=== PATIENT | female | born 1990 | race American Indian/Alaskan Native ===

== ENCOUNTER 2019-03-12 17:44 | Emergency (ER) | payer SELFPAY ==
--- NOTE | 2019-03-12 20:15 | Emergency Department Report ---
Chief Complaint: Chest Pain Stated Complaint: CHEST PAIN/LFT SIDE DISCOMFORT - HPI History of Present Illness: 28 yo BF states that she has intermittent CP and L arm tingling for 3 days. - Exam Vital Signs: Vital Signs 03/12/19 20:05 Temperature 98.1 F Pulse Rate 89 Respiratory 18 Rate Blood Pressure 126/79 O2 Sat by Pulse 96 Oximetry MSE screening note: Focused history and physical exam performed. Due to findings the following was ordered: ED Disposition for MSE Condition: Stable
[2019-03-12 21:01] VITALS: BP 112/70
[2019-03-12 21:18] LABS: Basophils # (Auto) 0.1 K/mm3 (0.0-0.1); Basophils % (Auto) 0.5 % (0.0-1.8); Eosinophils # (Auto) 0.4 K/mm3 (0.0-0.4); Eosinophils % (Auto) 3.6 % (0.0-4.3); Hematocrit 43.5 % (30.3-42.9); Hemoglobin 14.7 gm/dl (10.1-14.3); Lymphocytes # (Auto) 2.6 K/mm3 (1.2-5.4); Lymphocytes % (Auto) 24.5 % (13.4-35.0); Mean Corpuscular HGB Conc 34 % (30-34); Mean Corpuscular Volume 94 fl (79-97); Monocytes # (Auto) 0.7 K/mm3 (0.0-0.8); Monocytes % (Auto) 6.6 % (0.0-7.3); Platelet Count 187 K/mm3 (140-440); Red Blood Count 4.63 M/mm3 (3.65-5.03); Red Cell Distribution Width 12.8 % (13.2-15.2)
[2019-03-12 21:20] LABS: Alanine Aminotransferase 31 units/L (7-56); Albumin 4.7 g/dL (3.9-5); BUN/Creatinine Ratio 21; Blood Urea Nitrogen 15 mg/dL (7-17); Calcium 9.8 mg/dL (8.4-10.2); Hemolysis Index 4
--- NOTE | 2019-03-12 21:26 | XRay Report ---
CHEST 2 VIEWS INDICATION / CLINICAL INFORMATION: CP. COMPARISON: None available. FINDINGS: SUPPORT DEVICES: None. HEART / MEDIASTINUM: No significant abnormality. LUNGS / PLEURA: No significant pulmonary or pleural abnormality. No pneumothorax. ADDITIONAL FINDINGS: Bilateral nipple piercings IMPRESSION: 1. No acute findings. Signer Name: Alexx Romeo MD Signed: 03/12/2019 9:21 PM Workstation Name: [id number]
--- NOTE | 2019-03-12 23:07 | Emergency Department Report ---
ED Chest Pain HPI - General Chief Complaint: Chest Pain Stated Complaint: CHEST PAIN/LFT SIDE DISCOMFORT Time Seen by Provider: 03/12/19 22:59 Source: patient Mode of arrival: Ambulatory Limitations: No Limitations - History of Present Illness Initial Comments: [id number]-old -[place] female presents to the emergency room for a 3 day history of intermittent chest pain on the left side that radiates to her left arm shortness of breath times last night. Patient reports that the pain is sharp at night when she is trying to rest. She reports tingling to her left arm. Patient denies any pain at this moment no further shortness of breath. Patient last menstrual period she is currently on IUD at the [facility]. She has no past medical history currently has no medications on a daily basis is and his allergies to sulfa drugs. Patient is currently in school she has 3 children. MD Complaint: chest pain Onset/Timin -: days(s) Onset: during rest Pain Location: left chest Pain Radiation: LUE Severity scale (0 -10): 0 Quality: sharp Consistency: intermittent Improves With: nothing Worsens With: nothing re: dyspnea. denies: nausea, vomting, diaphoresis, sense of impending doom Treatments Prior to Arrival: none - Related Data On Oral Contraceptives: No Allergies Allergy/AdvReac Type Severity Reaction Status Date / Time sulfamethoxazole Allergy Unknown Verified 03/12/19 17:49 [From Bactrim] trimethoprim [From Bactrim] Allergy Unknown Verified 03/12/19 17:49 Heart Score - HEART Score History: Slightly suspicious EKG: Normal Age: < 45 Risk factors: No known risk factors Troponin: 1-3x normal limit HEART Score: 1 - Critical Actions Critical Actions: 0-3 pts:0.9-1.7%risk of adverse cardiac event.Candidate for discharge ED Review of Systems ROS: Stated complaint: CHEST PAIN/LFT SIDE DISCOMFORT Other details as noted in HPI Comment: All other systems reviewed and negative Constitutional: denies: chills, fever Eyes: denies: eye pain, eye discharge, vision change ENT: denies: ear pain, throat pain Respiratory: shortness of breath (not currently) Cardiovascular: chest pain (not currently) Gastrointestinal: denies: abdominal pain, nausea, diarrhea ED Past Medical Hx - Past Medical History Previous Medical History?: No - Surgical History Past Surgical History?: No - Social History Smoking Status: Current Every Day Smoker Substance Use Type: Alcohol ED Physical Exam - General Limitations: No Limitations General appearance: alert, in no apparent distress - Head Head exam: Present: atraumatic, normocephalic - Eye Eye exam: Present: normal appearance - ENT ENT exam: Present: mucous membranes moist - Neck Neck exam: Present: normal inspection - Respiratory Respiratory exam: Present: normal lung sounds bilaterally. Absent: respiratory distress, chest wall tenderness - Cardiovascular Cardiovascular Exam: Present: regular rate, normal rhythm. Absent: systolic murmur, diastolic murmur, rubs, gallop - GI/Abdominal GI/Abdominal exam: Present: soft, normal bowel sounds - Neurological Exam Neurological exam: Present: alert, oriented X3 - Psychiatric Psychiatric exam: Present: normal affect, normal mood - Skin Skin exam: Present: warm, dry, intact, normal color. Absent: rash ED Course Vital Signs 03/12/19 03/12/19 20:05 20:59 Temperature 98.1 F Pulse Rate 89 70 Respiratory 18 16 Rate Blood Pressure 126/79 Blood Pressure 112/70 [Left] O2 Sat by Pulse 96 97 Oximetry IMTIAZ score - Imtiaz Score Age > 65: (0) No Aspirin use within the Past 7 Days: (0) No 3 or more CAD Risk Factors: (0) No 2 or more Angina events in past 24 hrs: (0) No Known CAD with more than 50% Stenosis: (0) No Elevated Cardiac Markers: (0) No ST Deviation Greater than 0.5mm: (0) No IMTIAZ Score: 0 ED Medical Decision Making - Lab Data Result diagrams: 03/12/19 20:21 03/12/19 20:21 - Radiology Data Radiology results: report reviewed Patient: MANASA PIERRE MR#: [id number] : 1990 Acct:[id number] Age/Sex: 28 / F ADM Date: 03/12/19 Loc: ED Attending Dr: Ordering Physician: SANDHYA FLORES PA-C Date of Service: 03/12/19 Procedure(s): XR chest routine 2V Accession Number(s): [id number] cc: SANDHYA FLORES PA-C Fluoro Time In Minutes: CHEST 2 VIEWS INDICATION / CLINICAL INFORMATION: CP. COMPARISON: None available. FINDINGS: SUPPORT DEVICES: None. HEART / MEDIASTINUM: No significant abnormality. LUNGS / PLEURA: No significant pulmonary or pleural abnormality. No pneumothorax. ADDITIONAL FINDINGS: Bilateral nipple piercings IMPRESSION: 1. No acute findings. Signer Name: Alexx Romeo MD Signed: 03/12/2019 9:21 PM Workstation Name: [id number] Transcribed By: TL Dictated By: Alexx Romeo MD Electronically Authenticated By: Alexx Romeo MD Signed Date/Time: 03/12/192120 DD/ 20 TD/TT: - Medical Decision Making [id number] -[place] female presents to the emergency room for a 3 day history of intermittent chest pain on the left side that radiates to her left arm shortness of breath times last night. Patient reports that the pain is sharp at night when she is trying to rest. She reports tingling to her left arm. Patient denies any pain at this moment no further shortness of breath. Patient last menstrual period she is currently on IUD at the [facility]. She has no past medical history currently has no medications on a daily basis is and his allergies to sulfa drugs. Patient is currently in school she has 3 children. Chest x-ray is negative. EKG normal sinus rhythm. Negative troponin. Patient currently has no chest pain or shortness of breathing. Discussed the patient she should follow up with her primary care provider in the next 2-3 days if symptoms persist or gets worse. Patient verbalizes understanding. Critical care attestation.: If time is entered above; I have spent that time in minutes in the direct care of this critically ill patient, excluding procedure time. ED Disposition Clinical Impression: Atypical chest pain Disposition: DC-01 TO HOME OR SELFCARE Is pt being admited?: No Does the pt Need Aspirin: No Condition: Stable Instructions: Chest Pain (ED) Additional Instructions: Please follow-up with a primary care provider if his symptoms persist or gets worse. Referrals: Your,Provider [Other] - 3-5 Days Forms: Work/School Release Form(ED)
== END 2019-03-13 00:32 | disposition home or self-care (01) ==
LOC: ED 17:44
DX: R07.89 Other chest pain (principal); F17.200 Nicotine dependence, unspecified, uncomplicated; Z79.899 Other long term (current) drug therapy; Z88.8 Allergy status to other drugs, medicaments and biological substances
CPT/HCPCS: 36415; 71046; 80053; 84484; 85025; 93005; 93010

== ENCOUNTER 2020-02-21 09:29 | Emergency (ER) | payer BC ==
[2020-02-21 09:38] VITALS: BP 118/77
--- NOTE | 2020-02-21 10:38 | Emergency Department Report ---
ED General Adult HPI - General Chief complaint: Upper Respiratory Infection Stated complaint: FATIGUE,DIZZY,HEADACHE,CP Time Seen by Provider: 02/21/20 10:11 Source: patient Mode of arrival: Ambulatory Limitations: No Limitations - History of Present Illness Initial comments: Patient is a 29-year-old female presents emergency room with complaints of fat igue that began a week ago. She has associated generalized weakness, dizziness, diarrhea, cough, chest congestion, chest discomfort after frequent coughing. She denies any nausea, vomiting, sore throat, ear pain, shortness of breath, abdominal pain. She denies any known sick contacts. She denies any recent travel. She denies any past medical history. She has an allergy to Bactrim. She states that she uses an IUD as control. Patient states that she was concerned that she might be anemic but has never had a history of anemia in the past. - Related Data Allergies Allergy/AdvReac Type Severity Reaction Status Date / Time sulfamethoxazole Allergy Unknown Verified 03/12/19 17:49 [From Bactrim] trimethoprim [From Bactrim] Allergy Unknown Verified 03/12/19 17:49 ED Review of Systems ROS: Stated complaint: FATIGUE,DIZZY,HEADACHE,CP Other details as noted in HPI Comment: All other systems reviewed and negative ED Past Medical Hx - Past Medical History Previous Medical History?: No - Surgical History Past Surgical History?: No - Social History Smoking Status: Current Every Day Smoker Substance Use Type: Alcohol ED Physical Exam - General Limitations: No Limitations General appearance: alert, in no apparent distress - Head Head exam: Present: atraumatic, normocephalic - Eye Eye exam: Present: normal appearance - ENT ENT exam: Present: normal orophraynx, mucous membranes moist, TM's normal bilaterally, normal external ear exam - Respiratory Respiratory exam: Present: normal lung sounds bilaterally. Absent: respiratory distress, wheezes, rales, rhonchi, stridor, chest wall tenderness, accessory muscle use, decreased breath sounds, prolonged expiratory - Cardiovascular Cardiovascular Exam: Present: regular rate, normal rhythm, normal heart sounds. Absent: systolic murmur, diastolic murmur, rubs, gallop - Neurological Exam Neurological exam: Present: alert, oriented X3 - Psychiatric Psychiatric exam: Present: normal affect, normal mood - Skin Skin exam: Present: warm, dry, intact ED Course Vital Signs 02/21/20 09:36 Temperature 98.5 F Pulse Rate 72 Respiratory 18 Rate Blood Pressure 118/77 O2 Sat by Pulse 97 Oximetry ED Medical Decision Making - Lab Data Result diagrams: 02/21/20 10:37 02/21/20 10:37 Lab Results 02/21/20 02/21/20 02/21/20 Range/Units 10:37 10:37 10:37 WBC 9.3 (4.5-11.0) K/mm3 RBC 4.46 (3.65-5.03) M/mm3 Hgb 14.5 H (10.1-14.3) gm/dl Hct 42.7 (30.3-42.9) % MCV 96 (79-97) fl MCH 32 (28-32) pg MCHC 34 (30-34) % RDW 13.3 (13.2-15.2) % Plt Count 175 (140-440) K/mm3 Lymph % (Auto) 22.6 (13.4-35.0) % [place] % (Auto) 5.5 (0.0-7.3) % Eos % (Auto) 5.1 H (0.0-4.3) % Baso % (Auto) 0.7 (0.0-1.8) % Lymph # (Auto) 2.1 (1.2-5.4) K/mm3 [place] # (Auto) 0.5 (0.0-0.8) K/mm3 Eos # (Auto) 0.5 H (0.0-0.4) K/mm3 Baso # (Auto) 0.1 (0.0-0.1) K/mm3 Seg Neutrophils % 66.1 (40.0-70.0) % Seg Neutrophils # 6.1 (1.8-7.7) K/mm3 Sodium 138 (137-145) mmol/L Potassium 4.2 (3.6-5.0) mmol/L Chloride 102.1 (98-107) mmol/L Carbon Dioxide 25 (22-30) mmol/L Anion Gap 15 mmol/L BUN 15 (7-17) mg/dL Creatinine 0.6 (0.6-1.2) mg/dL Estimated GFR > 60 ml/min BUN/Creatinine Ratio 25 % Glucose 93 (65-100) mg/dL Calcium 9.2 (8.4-10.2) mg/dL Total Bilirubin 0.20 (0.1-1.2) mg/dL AST 17 (5-40) units/L ALT 26 (7-56) units/L Alkaline Phosphatase 85 (35-129) units/L Total Protein 6.6 (6.3-8.2) g/dL Albumin 4.1 (3.9-5) g/dL Albumin/Globulin Ratio 1.6 % HCG, Qual Negative (Negative) - Radiology Data Radiology results: report reviewed CHEST 2 VIEWS INDICATION / CLINICAL INFORMATION: cough, chest congestion. COMPARISON: 03/12/19 FINDINGS: SUPPORT DEVICES: None. HEART / MEDIASTINUM: No significant abnormality. LUNGS / PLEURA: No significant pulmonary or pleural abnormality. No pneumothorax. ADDITIONAL FINDINGS: No significant additional findings. IMPRESSION: 1. No acute findings. No change. Signer Name: Antonio Reynolds MD Signed: 02/21/2020 11:47 AM Workstation Name: [id number] Transcribed By: DT Dictated By: Diaz Reynolds MD Electronically Authenticated By: Diaz Reynolds MD Signed Date/Time: 02/21/20 1147 DD/ 1147 TD/TT: - Medical Decision Making Patient is a 29-year-old female presents emergency room with complaints of fatigue that began a week ago. She has associated generalized weakness, dizziness, diarrhea, cough, chest congestion, chest discomfort after frequent coughing. She denies any nausea, vomiting, sore throat, ear pain, shortness of breath, abdominal pain. She denies any known sick contacts. She denies any recent travel. She denies any past medical history. She has an allergy to Bactrim. She states that she uses an IUD as control. Patient states that she was concerned that she might be anemic but has never had a history of anemia in the past. Vitals are normal. Labs are normal. hCG is negative. Chest x- ray:1. No acute findings. No change. Patient is presenting with the symptoms are new COVID-19 pandemic, discussed the possibility of COVID-19 with patient, discuss strict return precautions, discussed outpatient testing, discussed self quarantine. Patient has no clinical signs of dehydration, no hypotension, no clinical signs of bacterial pneumonia or bronchitis. advised pt Please increase your fluid intake over the next several days. May take Tylenol as needed for fever or body aches. May take imqf-brq-[id number] cold symptom relief medication such as Mucinex or TheraFlu. Follow-up with a primary care doctor for reexamination. Return to emergency room immediately for any new or worsening symptoms including but not limited to difficulty breathing, shortness of breath, severe chest pain, unable to tolerate by mouth intake, etc. Please self quarantine for 2 weeks from the onset of your symptoms. Please do not go out in public. If you are around others at home please wear a mask. If you need to cough or sneeze please do so in a napkin and immediately throw it away and immediately wash your hands. Wash your hands frequently. Wipe everything down. Recommend for you to get COVID-19 testing, may have this done at primary care doctor, health department, [facility] or drive thru testing center - Differential Diagnosis URI, PNA, COVID19, viral syndrome, electrolyte disturbance, anemia, SUKUMAR Critical care attestation.: If time is entered above; I have spent that time in minutes in the direct care o f this critically ill patient, excluding procedure time. ED Disposition Clinical Impression: Viral URI with cough, Dizziness, Generalized weakness Fatigue Qualifiers: Fatigue type: unspecified Qualified Code(s): R53.83 - Other fatigue Disposition: DC-01 TO HOME OR SELFCARE Is pt being admited?: No Does the pt Need Aspirin: No Condition: Stable Instructions: COVID-19, Viral Syndrome (ED) Additional Instructions: Please increase your fluid intake over the next several days. May take Tylenol as needed for fever or body aches. May take fhpy-hjf-khkbstg cold symptom relief medication such as Mucinex or TheraFlu. Follow-up with a primary care doctor for reexamination. Return to emergency room immediately for any new or worsening symptoms including but not limited to difficulty breathing, shortness of breath, severe chest pain, unable to tolerate by mouth intake, etc. Please self quarantine for 2 weeks from the onset of your symptoms. Please do not go out in public. If you are around others at home please wear a mask. If you need to cough or sneeze please do so in a napkin and immediately throw it away and immediately wash your hands. Wash your hands frequently. Wipe everything down. Recommend for you to get COVID-19 testing, may have this done at primary care doctor, health department, [facility] or drive thru testing center Referrals: ALISSA YBARRA MD [Primary Care Provider] - 2-3 Days JUDITH RADFORD MD [Staff Physician] - 2-3 Days Time of Disposition: 12:08 Print Language: ROMANIAN
[2020-02-21 11:00] LABS: Basophils # (Auto) 0.1 K/mm3 (0.0-0.1); Basophils % (Auto) 0.7 % (0.0-1.8); Eosinophils # (Auto) 0.5 K/mm3 (0.0-0.4); Eosinophils % (Auto) 5.1 % (0.0-4.3); Hematocrit 42.7 % (30.3-42.9); Hemoglobin 14.5 gm/dl (10.1-14.3); Lymphocytes # (Auto) 2.1 K/mm3 (1.2-5.4); Lymphocytes % (Auto) 22.6 % (13.4-35.0); Mean Corpuscular HGB Conc 34 % (30-34); Mean Corpuscular Volume 96 fl (79-97); Monocytes # (Auto) 0.5 K/mm3 (0.0-0.8); Monocytes % (Auto) 5.5 % (0.0-7.3); Platelet Count 175 K/mm3 (140-440); Red Blood Count 4.46 M/mm3 (3.65-5.03); Red Cell Distribution Width 13.3 % (13.2-15.2)
[2020-02-21 11:14] LABS: Alanine Aminotransferase 26 units/L (7-56); Albumin 4.1 g/dL (3.9-5); Blood Urea Nitrogen 15 mg/dL (7-17); Calcium 9.2 mg/dL (8.4-10.2); Hemolysis Index 11
[2020-02-21 11:15] LABS: BUN/Creatinine Ratio 25
--- NOTE | 2020-02-21 11:52 | XRay Report ---
CHEST 2 VIEWS INDICATION / CLINICAL INFORMATION: cough, chest congestion. COMPARISON: 03/12/19 FINDINGS: SUPPORT DEVICES: None. HEART / MEDIASTINUM: No significant abnormality. LUNGS / PLEURA: No significant pulmonary or pleural abnormality. No pneumothorax. ADDITIONAL FINDINGS: No significant additional findings. IMPRESSION: 1. No acute findings. No change. Signer Name: Antonio Reynolds MD Signed: 02/21/2020 11:47 AM Workstation Name: [id number]
== END 2020-02-21 12:15 | disposition home or self-care (01) ==
LOC: ED 09:29
DX: J06.9 Acute upper respiratory infection, unspecified (principal); B34.9 Viral infection, unspecified; R05 Cough; R42 Dizziness and giddiness; R53.1 Weakness; R53.83 Other fatigue; F17.200 Nicotine dependence, unspecified, uncomplicated; Z88.8 Allergy status to other drugs, medicaments and biological substances
CPT/HCPCS: 36415; 71046; 80053; 84703; 85025

== ENCOUNTER 2020-03-30 17:18 | Emergency (ER) | payer BC ==
[2020-03-30 17:26] VITALS: BP 129/80
--- NOTE | 2020-03-30 17:55 | Emergency Department Report ---
Blank Doc - Documentation Documentation: 30-year-old female that presents with vaginal discharge and concerned about STD. This initial assessment/diagnostic orders/clinical plan/treatment(s) is/are subject to change based on patient's health status, clinical progression and re- assessment by fellow clinical providers in the ED. Further treatment and workup at subsequent clinical providers discretion. Patient/guardians urged not to elope from the ED as their condition may be serious if not clinically assessed and managed. Initial orders include: 1- Patient sent to [facility] for further evaluation and treatment 2- UA
[2020-03-30 18:51] LABS: Bilirubin,Urine NEG (Negative); Blood,Urine NEG (Negative); Color,Urine Yellow (Yellow); Mucus,Urine FEW /HPF; Protein,Urine <15 mg/dL mg/dL (Negative); Urobilinogen,Urine < 2.0 mg/dL (<2.0)
[2020-03-30 19:01] LABS: HCG Qualitative,Urine Negative (Negative)
[2020-03-30] MEDS ORDERED: LIDOCAINE-MPF (1%) 10 MG/1 ML VIAL 5 ML INFILTRATI ONE (20:38)
[2020-03-30] MEDS ORDERED: ONDANSETRON 4 MG ODT TAB PO ONE (20:38)
[2020-03-30] MEDS ORDERED: AZITHROMYCIN 250 MG TAB PO ONE (20:38)
--- NOTE | 2020-03-30 21:32 | Emergency Department Report ---
ED Female HPI - General Chief complaint: Urogenital-Female Stated complaint: LOWER BACK/ABD PAIN Time Seen by Provider: 03/30/20 17:54 Source: patient Mode of arrival: Ambulatory Limitations: No Limitations - History of Present Illness Initial comments: Patient is a 30-year-old -Al[place]ian female with no past medical history presents to the ED with complaint of vaginal discharge, urinary urgency and frequency for the last 2 days. Patient states that his sexual partner with whom he had a sexual intercourse 5 days ago tested positive for gonorrhea and chlamydia and was treated today in this ED. Patient states that the individual is only person she has had unprotected sexual intercourse with. Patient denies abdominal pain, dizziness, syncope, fever, chills, dysuria, dyspareunia, low back pain, vaginal bleeding, sore throat, nausea and vomiting or diarrhea. MD Complaint: vaginal discharge, possible STD, other -: Sudden, days(s) (2) Location: other (vaginal) Radiation: non-radiating Severity: mild Severity scale (0 -10): 1 Quality: dull Consistency: constant Improves with: none Worsens with: none Are you Now?: No Last Menstrual Period: 03/08/20 EDC: 12/13/20 Associated Symptoms: denies other symptoms, vaginal discharge. denies: vaginal bleeding, abdominal pain, nausea/vomiting, fever/chills, headaches, loss of appetite, dysuria, hematuria, rash, seizure, shortness of breath, syncope, weakness - Related Data Sexually active: Yes Previous Rx's Medication Instructions Recorded Last Taken Type Doxycycline Hyclate 100 mg PO Q12H #20 tablet. 03/30/20 Unknown Rx Fluconazole (Nf) [Diflucan TAB] 150 mg PO ONCE #1 tablet 03/30/20 Unknown Rx metroNIDAZOLE [Flagyl] 500 mg PO Q12HR #14 tab 03/30/20 Unknown Rx Allergies Allergy/AdvReac Type Severity Reaction Status Date / Time sulfamethoxazole Allergy Unknown Verified 03/12/19 17:49 [From Bactrim] trimethoprim [From Bactrim] Allergy Unknown Verified 03/12/19 17:49 ED Review of Systems ROS: Stated complaint: LOWER BACK/ABD PAIN Other details as noted in HPI Constitutional: denies: chills, fever Eyes: denies: eye pain, eye discharge, vision change ENT: denies: ear pain, throat pain Respiratory: denies: cough, shortness of breath, wheezing Cardiovascular: denies: chest pain, palpitations Endocrine: no symptoms reported Gastrointestinal: denies: abdominal pain, nausea, diarrhea Genitourinary: urgency, frequency, discharge. denies: dysuria Musculoskeletal: denies: back pain, joint swelling, arthralgia Skin: denies: rash, lesions Neurological: denies: headache, weakness, paresthesias Psychiatric: denies: anxiety, depression Hematological/Lymphatic: denies: easy bleeding, easy bruising ED Past Medical Hx - Past Medical History Previous Medical History?: No - Surgical History Past Surgical History?: No - Social History Smoking Status: Never Smoker Substance Use Type: None - Medications Home Medications: Home Medications Medication Instructions Recorded Confirmed Last Taken Type Doxycycline Hyclate 100 mg PO Q12H #20 tablet. 03/30/20 Unknown Rx Fluconazole (Nf) [Diflucan TAB] 150 mg PO ONCE #1 tablet 03/30/20 Unknown Rx metroNIDAZOLE [Flagyl] 500 mg PO Q12HR #14 tab 03/30/20 Unknown Rx ED Physical Exam - General Limitations: No Limitations General appearance: alert, in no apparent distress - Head Head exam: Present: atraumatic, normocephalic, normal inspection - Eye Eye exam: Present: normal appearance, PERRL, EOMI Pupils: Present: normal accommodation - ENT ENT exam: Present: normal exam, normal orophraynx, mucous membranes moist, TM's normal bilaterally, normal external ear exam - Neck Neck exam: Present: normal inspection, full ROM - Respiratory Respiratory exam: Present: normal lung sounds bilaterally. Absent: respiratory distress, wheezes, rhonchi, stridor, chest wall tenderness, accessory muscle use, prolonged expiratory - Cardiovascular Cardiovascular Exam: Present: regular rate, normal rhythm, normal heart sounds. Absent: bradycardia, tachycardia, irregular rhythm, systolic murmur, diastolic murmur, rubs, gallop - GI/Abdominal GI/Abdominal exam: Present: soft, normal bowel sounds. Absent: tenderness, guarding, hyperactive bowel sounds, hypoactive bowel sounds, organomegaly - Bi-manual exam: Present: other (Pelvic exam deferred, patient preferred self swab) - Extremities Exam Extremities exam: Present: normal inspection, full ROM, normal capillary refill - Back Exam Back exam: Present: normal inspection, full ROM. Absent: tenderness, CVA tenderness (R), CVA tenderness (L), muscle spasm, paraspinal tenderness, vertebral tenderness - Neurological Exam Neurological exam: Present: alert, oriented X3, CN II-XII intact, normal gait, reflexes normal - Psychiatric Psychiatric exam: Present: normal affect, normal mood - Skin Skin exam: Present: warm, dry, intact, normal color. Absent: rash ED Course Vital Signs 03/30/20 17:26 Temperature 98 F Pulse Rate 71 Respiratory 16 Rate Blood Pressure 129/80 [Right] O2 Sat by Pulse 98 Oximetry ED Medical Decision Making - Medical Decision Making This is a 30-year-old -Algerian female with no past medical history presents to the ED with complaint of vaginal discharge, urinary urgency and frequency for the last 2 days. Patient states that his sexual partner with whom he had a sexual intercourse 5 days ago tested positive for gonorrhea and chlamydia and was treated today in this ED. Patient states that the individual is only person she has had unprotected sexual intercourse with. In the ED, patient is alert and oriented x3 and is not in any distress with normal vital signs. Urinalysis is unremarkable and urine hCG test was negative. Wet prep was positive for Gardnerella vaginalis but negative for trichomonas and Valeria. Chlamydia and gonorrhea tests results are pending at this time. Patient was empirically treated for gonorrhea and chlamydia in the ED with Rocephin and azithromycin. Patient was discharged home on medications and advised to follow- up at the [facility] department for further STD testing including HIV and syphilis. Patient was advised to observe safe sexual practices and to fol low-up with her primary care physician or [employer] physician in 7 to 10 days for reevaluation. Patient was advised return to the ED immediately if symptoms get worse. - Differential Diagnosis Trichomonas; UTI; Gonorrhea; Chlamydia; Syphilis; HIV; Genital herpes Critical care attestation.: If time is entered above; I have spent that time in minutes in the direct care of this critically ill patient, excluding procedure time. ED Disposition Clinical Impression: Bacterial vaginosis, STD (sexually transmitted disease), Gonorrhea contact Disposition: TO HOME OR SELFCARE Is pt being admited?: No Does the pt Need Aspirin: No Condition: Stable Instructions: Bacterial Vaginosis (ED), Sexually Transmitted Diseases (ED) Additional Instructions: Take medication with food, drink plenty of fluids and follow-up with the [facility] department for further STD testing including syphilis and HIV. Return to the ED immediately if symptoms get worse. Observe safe sexual practices. Prescriptions: Fluconazole (Nf) [Diflucan TAB] 150 mg PO ONCE #1 tablet Doxycycline Hyclate 100 mg PO Q12H #20 tablet. metroNIDAZOLE [Flagyl] 500 mg PO Q12HR #14 tab Referrals: [facility] Depart [Outside] - 3-5 Days Forms: STI Treatment and Prevention Time of Disposition: 21:32 Print Language: CUBAN
== END 2020-03-30 22:05 | disposition home or self-care (01) ==
LOC: ED 17:18
DX: N76.0 Acute vaginitis (principal); B96.89 Other specified bacterial agents as the cause of diseases classified elsewhere; A54.9 Gonococcal infection, unspecified; Z79.899 Other long term (current) drug therapy; Z88.8 Allergy status to other drugs, medicaments and biological substances
CPT/HCPCS: 81001; 81025; 87210; 87591; 96372; 99283; J0696; Q0162